=== PATIENT | female | born 1965 | race Caucasian/White ===

== ENCOUNTER 2024-05-22 15:52 | Inpatient (IN) | payer BC, SELFPAY ==
[2024-05-22] VITALS (61 sets, daily range): BP systolic 45–142; BP diastolic 32–112; PULSE 50; BMI 38.4
[2024-05-22 12:01] LABS: % Basophils 0.8 % (0-2); % Eosinophils 2.2 % (0-6); % Immature Granulocytes 0.4 % (0-0.5); % Lymphocytes 38.9 % (20.5-51.1); % Neutrophils 51.7 % (42.2-75.2); Absolute Basophils 0.1 10^3/uL (0-0.2); Absolute Eosinophils 0.2 10^3/uL (0-0.7); Absolute Lymphocytes 3.7 10^3/uL (1.2-3.4); Absolute Monocytes 0.6 10^3/uL (0.1-0.6); Absolute Neutrophils 4.9 10^3/uL (1.4-6.5); Hematocrit 39.2 % (37.0-47.0); Hemoglobin 13.6 g/dL (12.0-16.0); Mean Corp Hgb Conc. 34.7 g/dL (33.0-37.0); Mean Corpuscular Hgb 28.9 pg (27.0-31.0); Mean Corpuscular Volume 83.2 fL (81.0-99.0); Mean Platelet Volume 9.7 fL (7.4-10.4); Nucleated Red Blood Cells % 0 %; Platelet Count 331 10^3/uL (130-400); Red Blood Cell Count 4.71 10^6/uL (4.20-5.40); Red Cell Dist. Width 12.8 % (11.5-14.5); White Blood Cell Count 9.5 10^3/uL (4.8-10.8)
[2024-05-22 12:13] LABS: ALT (SGPT) 21 U/L (0-35); AST (SGOT) 32 U/L (14-36); Albumin 4.3 g/dl (3.5-5.0); Alkaline Phosphatase 76 U/L (38-126); Blood Urea Nitrogen 20 mg/dl (7-17); Carbon Dioxide 25 mmol/L (22-30); Chloride 107 mmol/L (98-107); Estimated Creatinine Clearance 93 ml/min; Glucose 125 mg/dl (70-99); Sodium 139 mmol/L (135-145); Total Bilirubin 0.8 mg/dl (0.2-1.3); Total Protein 7.5 g/dl (6.3-8.2); eGFR > 60.00
--- NOTE | 2024-05-22 12:14 | ED.GENMED ---
Addendum entered and electronically signed by Jaden Perez MD 05/24/24 08:01:
Critical care statement: A total of 100 minutes of critical care time was provided for this patient. This includes management of unstable vital signs, evaluation of the patient at bedside, reviewing the patient's pertinent medical records,
discussion with consultants, review of old EKGs and review of pertinent medical records. This time with separate from time utilized to perform the aforementioned documented procedures
Original Note:
History of Present Illness
General
Chief Complaint: Heart Rate Problem
Source: patient
Exam Limitations: none
Time Seen by Provider: 05/22/24 11:48
Nursing documentation reviewed up to this point in time: agreed with
History of Present Illness
History of Present Illness:
Patient without any significant past medical history, presents to ED secondary to persistent chest palpitations, associated with 'throat constricting' sensation as well as mild lightheadedness over the past 4 days. Secondary to her symptoms,
patient states that she has not been sleeping well for the past 2 nights. Denies chest pain. Denies shortness of breath. Denies nausea or vomiting. Denies fever or chills. Denies recent illness. Denies recent travel or surgery. Denies back
pain. Denies leg pain or swelling. Patient states that her grandmother had 'angina'. Denies previous history of similar symptoms. Patient denies smoking. Patient does drink alcohol socially.
Review of Systems
Review of Systems
Allergies reviewed?: Yes
All Other Systems: ROS reviewed and negative except as documented in HPI and ROS
Constitutional: Reports no symptoms
EENT: Reports no symptoms
Respiratory: Reports no symptoms
Cardiac: Reports palpitations
ABD/GI: Reports no symptoms
: Reports no symptoms
Musculoskeletal: Reports no symptoms
Skin: Reports no symptoms
Neurological: Reports dizzy
Phy Exam
Physical Exam
Physical Exam:
Physical Exam
General: mild distress, not acutely ill. afebrile
Head: nc/at. eomi
Neck: supple. no meningeal signs.
Heart: tachycardic, no murmur. equal radial pulses.
Lungs: no acute respiratory distress. clear bilaterally
Abdomen: normal bowel sounds. not tender.
Neuro: alert and oriented. no focal neurological deficits
Skin: no rash
Psychiatric: well kept. interactive and cooperative
Extremities: no edema. no calf tenderness.
Course
Orders/Labs/Results
Orders:
Orders
05/22/24
Electrocardiogram (*1) Stat
Reason for Study: Chest Pain
Comment: DONE NO ORDER ENTERED
05/22/24 11:37
Electrocardiogram (*1) Urgent
Reason for Study: Shortness of Breath
EKG- Treatment ONCE
05/22/24 11:48
CMP [Comprehensive Metabolic Panel] Urgent
Complete Blood Count/With Diff Urgent
Magnesium Urgent
PT/INR [Prothrombin Time] Urgent
PTT Urgent
TSH Reflex To Free T4 Urgent
Troponin I Urgent
05/22/24 11:56
Add On- LAB Urgent
Tests Added?: magnesium, TSH to reflex Free T4
05/22/24 11:59
Ondansetron Injectable [Zofran] 4 mg IV NOW STA
05/22/24 12:11
Metoprolol [Lopressor] 5 mg IV NOW STA
05/22/24 12:12
EKG- Treatment ONCE
05/22/24 12:59
CR Chest Portable - 1 View Urgent
Comment:
Reason For Exam: hypotension/cp
Reason Study Needs to be Portable: Patient Unstable
05/22/24 13:14
Adenosine [Adenocard] 6 mg .ROUTE .[facility] ONE
Adenosine [Adenocard] 6 mg IV NOW STA
05/22/24 13:19
Electrocardiogram (*1) Urgent
Reason for Study: Tachycardia
EKG- Treatment ONCE
05/22/24 13:27
Diltiazem 125 mg/125 ml Nss [Cardizem] 125 mg in 125 ml IV NOW
Initial dose in mg/hr, then titrate:: 5
Titrate to keep:: Heart rate 80-100 bpm
Titrate by mg/hr:: 5 mg/hr
Frequency of titrations (minutes):: 15
Maximum dose in mg/hr:: 15
05/22/24 13:30
D-Dimer Urgent
05/22/24 14:19
Ondansetron Injectable [Zofran] 4 mg .ROUTE .[facility] ONE
05/22/24 15:06
Echo 2D MMode Color/Doppler Stat
Reason for Study: Limited LV function
05/22/24 15:17
Ondansetron Injectable [Zofran] 4 mg IV NOW STA
05/22/24 15:27
PHENYLephrine 50 MG/250 ML NSS [Rudi-Synephrine] 50 mg in 250 ml IV NOW
Initial dose in mcg/min, then titrate:: 20
Titrate to keep:: SBP > 90 mmHg
Titrate by mcg/min:: 20 mcg/min
Frequency of titrations (minutes):: 5
Maximum dose in ICU in mcg/min:: 200
Maximum dose in IMU in mcg/min:: 80
Begin to taper infusion when:: Remained at goal for 4hrs
Taper by mcg/min:: 20 mcg/min
Frequency of taper (minutes) if patient maintains goal:: 30
Taper to off?: Yes
If infusion off & no longer maintaining goal:: Contact Provider
05/22/24 15:30
Amiodarone [Cordarone] 150 mg Dextrose 5%/Water 100 ml [D5w] 100 ml IV NOW
05/22/24 15:32
Admit/Transfer Patient As Directed
Co-Sign Provider:
Level of Care: Inpatient admission
Assign to:: ICU
Physician / Group: Kym
Diagnosis: Hypotension
Reason for Hospitalization: Hypotension and tachycardia
Expected length of stay greater than two midnights?: Yes
ELOS- Estimated Length of Stay in days: 4
I certify the patient meets the requirements for IP care: Yes
Amiodarone [Cordarone] 900 mg DEXTROSE 5% PVC-free BAG [D5W PVC-free BAG] 500 ml IV NOW
Initial Dose in mg/min:: 1
Duration of initial dose (hours):: 6
Subsequent dose in mg/min:: 0.5
Duration of subsequent dose (hours):: 18
Maximum dose in mg/min:: 1
Hold and notify provider if:: Heart rate < 60 BPM or SBP < 90 mmHg or MAP < 60 mmHg
05/22/24 15:33
Code Status As Directed
Resuscitation Status: Full Code
05/22/24 15:54
0.9% Sodium Chloride 1000 ml [Nss] 1,000 ml IV 100 mls/hr
Acetaminophen [Tylenol] 650 mg PO Q4HPRN PRN
Bisacodyl [Dulcolax] 10 mg RECTAL [id number] PRN
Docusate W/Senna [Senokot-S] 1 tablet PO BIDPRN PRN
Ondansetron Injectable [Zofran] 4 mg IV Q6HPRN PRN
Polyethylene Glycol Powder [Miralax] 17 grams PO DAILYPRN PRN
05/22/24 15:54
CARDIOLOGY CONSULT Routine
Consulting Provider: Jayesh Cabrera
Was physician already notified: Yes
Reason for consult: Sinus tachycardia, hypotension
Activity As Directed
Activity Level: Out of Bed-Early Mobility
Vital Signs As Directed
Frequency: Per unit guidelines
DX Deep Vein Thrombosis Video Routine
05/22/24 18:00
Enoxaparin Sodium [Lovenox] 40 mg SC QPM
05/22/24 21:18
Blood Culture Q1M
JOANNE Source: Blood/Venous
Specimen Description:
Comment: x 2 (separate sites)
05/22/24 21:19
Blood Culture Q1M
JOANNE Source: Blood/Venous
Specimen Description:
Comment: x 2 (separate sites)
Abnormal Lab Results
05/22/24
11:48
Absolute Lymphs (auto) 3.7 H 10^3/uL
(1.2-3.4)
BUN 20 H mg/dl
(7-17)
Glucose 125 H mg/dl
(70-99)
05/22/24 11:48
05/22/24 11:48
Vital Signs
Initial and Last Documented VS:
Initial Vital Signs
Temp Pulse Resp BP Pulse Ox
99.4 F 122 18 108/87 98
05/22/24 11:30 05/22/24 11:30 05/22/24 11:30 05/22/24 11:30 05/22/24 11:30
Last Documented Vital Signs
Temp Pulse Resp BP Pulse Ox
98.3 F 72 17 104/63 98
05/24/24 07:08 05/24/24 06:15 05/24/24 06:15 05/24/24 06:00 05/24/24 06:15
MDM/Problems Addressed
MDM/Problems Addressed:
Patient evaluated immediately upon arrival, secondary to moderate/severe tachycardia. After initial evaluation, vagal maneuver applied, with transient slowing down of heart rate, with 1 EKG, which appeared to be in sinus rhythm. However, quickly,
patient noted to become tachycardic again. Afterwards, patient was given IV fluids along with Lopressor 5 mg IV. Patient subsequently noted to exhibit multiple pauses with mormonism of tachycardia.
Patient evaluated in ED by Dr. Cabrera, cardiology. Adenosine administered with once again transient slowing down of the heart rate into sinus rhythm. Patient unfortunately returned right back into extreme tachycardia. Recommend starting
patient on Cardizem infusion at 5 mg/hour and admission to hospital service for further evaluation and treatment.
Will check D-dimer.
With a short duration of Cardizem infusion, patient noted to become dizzy, nauseous and hypotensive. Cardizem infusion decreased to 2.5 mg/h, without any changes, but continuation of hypotension despite additional IV fluids. Cardizem infusion
discontinued.
After discussion with Dr. Cabrera and admitting hospitalist, decision made to start patient on Rudi-Synephrine infusion as well as amiodarone drip without bolus. Severe hypotension slowly improving on Rudi-Synephrine infusion. Patient will be
admitted to ICU for further evaluation and treatment.
Unfortunately, when started on Cardizem infusion, even at low-dose of 2.5 mg/h, patient became severely hypotensive and vomiting. Discussed with recommends starting patient on amio gtt, if BP improves. Will admit to ICU for further
evaluation and treatment.
Critical care statement: A total of 100 minutes of critical care time was provided for this patient. This includes management of unstable vital signs, evaluation of the patient at bedside, reviewing the patient's pertinent medical records,
discussion with consultants, review of old EKGs and review of pertinent medical records. This time with separate from time utilized to perform the aforementioned documented procedures
*EKG
Interpreted by ED Provider?: Yes
EKG Intrepretation Date: 05/22/24
Heart Rate: 170
Rate: tachycardiac
Rhythm: other (undetermined)
[place]: normal axis
*Critical Care Note
Total Time (30-74mins, 75-104mins- exclusive of procedures): Not Applicable
ED Attending Note
-
Portions of this chart may have been created with voice recognition software.� Occasional wrong word or��sound alike� substitutions may have occurred due to the inherent limitations of voice recognition software.
Discharge Plan
Departure
Patient Disposition: Admit
Date of Disposition: 05/22/24
Time of Disposition: 14:54
Admit to: ICU
Presentation/result/management discussed w/ accepting MD/DO: Hospitalist
Discharge Problem:
SVT (supraventricular tachycardia)
Interventions
Interventions:
*Risk Screen - Suicide Last Done: 05/22/24 17:17
*General Assessment Last Done: 05/22/24 11:30
*Neglect/Abuse Screening Last Done: 05/22/24 11:30
ED- Fall Risk Assessment Last Done: 05/22/24 11:43
*ED COVID-19 Vaccine History Last Done: 05/22/24 17:11
*Nursing Disposition Last Done: 05/22/24 15:55
ED- Cardiac Assessment Last Done: 05/22/24 11:43
ED- Pulmonary Assessment Last Done: 05/22/24 11:43
Discharge Date and Time
Discharge Date/Time: 05/22/24 16:12
[2024-05-22 12:18] LABS: APTT 27.2 Sec (23.4-35.0); INR 1.01; PT 13.1 Sec (11.4-14.6)
[2024-05-22] MEDS: LOPRESSOR 5 MG IV (12:18)
[2024-05-22 12:24] LABS: Troponin I 0.014 ng/ml
[2024-05-22 12:29] LABS: Magnesium 1.9 mg/dl (1.6-2.3)
[2024-05-22 13:03] LABS: TSH Reflex To Free T4 1.99 uIU/ml (0.47-4.68)
[2024-05-22] MEDS: ADENOCARD 6 MG IV (13:20)
[2024-05-22] MEDS: CARDIZEM 125 IV (13:34)
[2024-05-22 14:34] LABS: D-Dimer < 0.27 ug/mlFEU (0.00-0.50)
[2024-05-22] MEDS: ZOFRAN 4 MG IV (15:19)
[2024-05-22] MEDS: NEO-SYNEPHRINE 250 IV ×2 (15:35→21:19)
--- NOTE | 2024-05-22 15:37 | HPS.HSE ---
Family Physician
-
Family Physician: Nina Remy
Chief Complaint
-
Nausea palpitation
History of Present Illness
58-year-old female with no known major medical history and not taking any medication, presented to the hospital complaining of the palpitation and feeling weak and lousy nauseated for the last 4 days, with some tightness in the chest occasionally
shooting down to the left arm, denies any syncope or dizziness or any weakness or numbness in extremity, no diarrhea or any urinary or GI symptoms., Denies sick contact or recent travel or any fever chills, no skin lesion or any other discomfort.
The urinalysis shows tachycardic and initial thought was SVT given dose of the adenosine which brought the heart rate down and then back down to sinus rhythm and pressure improved also went back quickly to the tachycardia and hypotension, given a
low-dose of Cardizem and beta-luis
She is still tachycardic and pressure on the low side, and 80s over 50s, seen by cardiology had a bedside echo that showed no acute abnormality, and cardiology recommended amiodarone drip and Rudi-Synephrine at this stage.
Patient remained awake, alert and oriented x 3 does not feel mildly nauseated and having palpitation denies any other complaint.
Her condition discussed with cardiology and ER physician
Medical History
Past Medical History
Past Medical History: Reports Other
Additional Past Medical History:
Past medical history and archive reviewed:
None
Social history: Lives with the family, denies smoking no alcohol or drug use.
Family history: Grandfather had coronary artery disease.
Past Surgical History: Reports Other
Social History
Unable to obtain full social history at this time due to: Other
Family History
Family History: Other
Allergies / Home Medications
Allergies reflects when Allergies were last updated in [facility].
Home Medications with original date entered in [facility]
Allergy/Medication List:
Allergies
Allergy/AdvReac Type Severity Reaction Status Date / Time
Sulfa (Sulfonamide Allergy Unknown Rash Verified 05/22/24 11:37
Antibiotics)
Home Medications
No Meds [No Current Medications] 05/22/24
Review of Systems
-
A 12 point ROS was completed and negative except as noted: Yes
Physical Exam
Vital Signs
Vital Signs
Temp Pulse Resp BP Pulse Ox
99.4 F 174 19 75/52 98
05/22/24 11:30 05/22/24 15:20 05/22/24 15:20 05/22/24 15:20 05/22/24 15:20
Physical exam:
General: Awake, alert and oriented x3, pale looking, not in distress and holds appropriate conversation.
HEENT: No active discharge, ecchymosis or bruising, moist lips, tongue and mucous membrane.
Eyes: No discharge or red conjunctiva, no nystagmus, pupils are reactive and equal
Neck:Supple, no JVD no bruit no goiter.
Respiratory: Normal AP contour and diameter, normal chest wall movement, normal respiratory effort, no respiratory distress,
Lungs: Good air entry bilaterally, no wheezing or rhonchi, no rales or crackles
Heart: S1, S2 regular, tachycardic no added sound.
Gastrointestinal: Positive bowel sounds, soft, nontender, no guarding or rigidity or organomegaly
Musculoskeletal: , no chest wall abnormality or tenderness. All joints and extremities have good range of motion, no muscle tenderness or any joint swelling or tenderness.
Extremities: No pitting edema, good peripheral pulses, good range of motion
Skin: Warm and dry, no ulceration, normal color.
Neurological: Awake, alert and oriented x3, moves extremities freely, no facial droop, speech clear and comprehensive, good muscle tone,
Psychiatric: Normal mood, normal thought and judgment, normal affect,
Physical Exam
Respiratory: Other
Laboratory Results
-
05/22/24 11:48
05/22/24 11:48
Laboratory Results
PT 13.1 Sec (11.4-14.6) 05/22/24 11:48
INR 1.01 05/22/24 11:48
APTT 27.2 Sec (23.4-35.0) 05/22/24 11:48
Total Bilirubin 0.8 mg/dl (0.2-1.3) 05/22/24 11:48
AST 32 U/L (14-36) 05/22/24 11:48
ALT 21 U/L (0-35) 05/22/24 11:48
Alkaline Phosphatase 76 U/L (38-126) 05/22/24 11:48
Troponin I 0.014 ng/ml 05/22/24 11:48
Chest x-ray: Showed no acute cardiopulmonary normalities
EKG showed no look like sinus tachycardia, CT 208, QTc 467, nonspecific ST-T wave abnormalities. No previous EKG on archive.
Data Reviewed
-
Diagnostic Radiology: Image Personally Visualized and interpreted, Discussed with Physician and Discussed with Patient
Medical Tests (Nuc Med, Echo, EKG etc): Image Personally Visualized and interpreted, Discussed with Physician and Discussed with Patient
Lab Data: Labs Reviewed by me, Discussed with Physician and Discussed with Patient
Old Records: Reviewed
Impression/Plan
-
IMPRESSION:
58-year-old female with no known major medical history, presented to the hospital complaining of 4-day history of palpitation and nausea with the workup showed tachycardia, responded shortly to adenosine but not to IV beta-luis or calcium channel
luis and she has been having a low blood pressure, no sign and symptom of any infection no fever, show this is SVT or A-fib or flutter.
Discussed with cardiology
Tachycardia, SVT versus sinus tachycardia.
Hypotension likely secondary to tachycardia
Infectious causes may need to be considered.
PLAN:
Admit in ICU
Rudi-Synephrine drip is ordered
Cardiology recommended amiodarone bolus and drip which has been ordered
Pressure is improving
Continue to monitor
Overall received 3 L normal saline and will continue at 100 mill per hour
Monitor vital sign closely
TSH and D-dimer is normal
Cardiology consult
Blood culture collected will hold off antibiotic for now. The chest x-ray is clear and new evidence of infection and was some of the signs and symptoms indication indicating require antibiotic
UA and culture if indicated
All discussed with the patient in detail expressed understanding
Discussed with the cardiology and ER physician
CODE STATUS full code
DVT prophylax Lovenox
[2024-05-22] MEDS: CORDARONE 103 MG IV (16:07)
[2024-05-22] MEDS: CORDARONE 518 MG IV (16:20)
--- NOTE | 2024-05-22 16:36 | CON.CAR ---
Consultation
Consultation Request
Date/Time Consultation Requested: May 22 2024 12:30
Date/Time Consultation Performed: May 22 2024 1:00 pm
Requesting Provider: Jaden Perez
Performing Provider: Jayesh Cabrera
Reason for Consultation: tachycardia
Medical History
-
Chief Complaint: palpitations
Past Medical History
Past Medical History: None
Past Surgical History: None
Social History
Tobacco: Non-Smoker
Alcohol: None
Drug: None
Living: With Family
Family History
Family History: CAD
Allergies / Home Medications
Allergy/AdvReac Type Severity Reaction Status Date / Time
Sulfa (Sulfonamide Allergy Unknown Rash Verified 05/22/24 11:37
Antibiotics)
�Medication �Instructions �Recorded �Confirmed �Type
No Meds [No Current Medications] 05/22/24 05/22/24 History
Review of Systems
-
All other systems: Negative unless noted
Physical Exam
Vital Signs
Temp Pulse Resp BP Pulse Ox
99.4 F 172 8 93/74 98
05/22/24 11:30 05/22/24 16:00 05/22/24 16:00 05/22/24 16:00 05/22/24 15:50
Lab Results
05/22/24 11:48
05/22/24 11:48
Troponin I Cancelled 05/22/24 18:00
Physical Exam
General: Well Developed, Well Nourished and Other (distressed )
HEENT: Normocephalic
Respiratory: Clear and Non Labored Respirations
Cardiac: Other (tachycardic )
GI: Soft
Musculoskeletal: No Clubbing, No Cyanosis and No Edema
Skin: Warm and Dry
Neuro: AO x 3
Impression / Plan
-
58 yo female with no significant PMH who presented with atrial tachycardia/SVT and then had hemodynamic compromise with metoprolol and dilitiazem. I would rule out sepsis with blood cultures etc. Will discuss with EP about possiblel EP study at
some point and possible ablation. Amiodarone is controlling HR and inotropic support appears to be coming down.
atrial tachycardia/SVT
- cont amiodarone gtt
- cont inotropic support and wean as able
- recieved metoprolol IV then diltiazem gtt at 2.5 mg and had profound hypotension thereafter requiring pressor support
- no in and out of a tach and sinus rhythm with PACs and blocked PACs, cont amiodarone
- troponin likely elevated 2/2 hypotension and tachycardia
Hypotension
- rule out infection
- IV fluids
Data Reviewed
-
EKG: Tracing Personally Visualized and interpreted (a tach )
Medical Tests (Nuc Med, Echo etc): Image Personally Visualized and interpreted
Labs: Labs Reviewed by me
[2024-05-22] MEDS: NSS 1000 IV ×2 (17:26→23:41)
--- NOTE | 2024-05-22 18:00 | PTCARENOTE ---
Pt came up to ICU from ED with her blood pressure 60s/50s, heart rate in the 170s. Pt had vomited en route to room and was diaphoretic. AAOx4. Denies pain. Denies feeling SOB. Received bedside report from ED RN. Phenylephrine gtt initially at
100mcg/min. Titrated up to 140mcg/min per protocol. 1L fluid bolus was supposed to be infusing but IV tubing found to be clamped and pt's IV site also found to be clamped. Upon unclamping both sites, R wrist PIV started swelling. R wrist PIV
discontinued and fluids switched to L hand PIV, which was flushed and is patent. Amiodarone bolus administered and amiodarone gtt infusing at 1mg/min or 33.3mL/hr through RAC #18. SaO2 mid 90s. Added 2L NC, SaO2 now 94-96%. STAT ECHO performed
shortly after pt came to ICU room. Prize Jacker at bedside. Verbal order taken for vasopressin gtt. Gtt not started as heart rate came down and blood pressure came up. After amiodarone bolus, heart rhythm when from sinus tachycardia to normal sinus
rhythm to what looks like 3rd degree heart block or junctional rhythm. Multiple EKGs performed and reviewed per Prize Jacker request at bedside. Blood cultures ordered. Pt stuck x2 without success. Will page phlebotomy and/or try again when pt more
stable.
[2024-05-22] MEDS: LOVENOX 40 MG SC (18:25)
--- NOTE | 2024-05-22 19:00 | W.PN.UPDATE ---
Update Note
Progress Note Update
05/22/24
1900- Patient heart rhythm, junctional/AVblock, most beats without P waves and multiple PACs adn PVCs, HR 50s. Patient states that she is comfortable, denies chest pain but slight pressure which she rates 3/10. Denies neck pain, tightness,
numbness/tingling, jaw pain, radiating pain, or back pain. Called scraper tender Dr. Cabrera, discussed rhythm changes. Patient currently on amio gtt and elvis gtt with SBP >90. Advised to continue amio gtt and update scraper tender if HR sustained
30s. Case also discussed with mems process engineer, Dr. India Sarkar. Will initiate CPAP, possible patient has suspected obstructed sleep apnea. States that she snores and has been woken up the last several nights with chest palpitations/pain.
1999- Reviewed with scraper tender Dr. Cabrera, at bedside heart rhythm changes, EKG obtained. Concern for AV block with sustained heart rate 30s. Dr. Cabrera reviewed with Dr. Chavez and Dr. Lara, decision was made to place temporary pacer and
stop amio gtt at this time, elvis gtt maintained for SBP >90.
05/23/24
0300- Heart rate 120-150s sustained atrial tachycardia, amio gtt resumed. At times there are slower beats, PACs/PVCs, paced beats and AVblock/junctional rhythm with some accelerated beats atrial tachycardia. Patient resting comfortably, denies
chest pain.
--- NOTE | 2024-05-22 21:00 | PTCARENOTE ---
on assessment pt AAOx3, denies pain and SOB, no N/V, rhythm SB with possible heart block/junctional, IT ARCHITECTURE ANALYST and cardio aware and at bedside to assess pt. IT ARCHITECTURE ANALYST and MD called home performance laborer in to place temp pacer, due to HR in the high 30s, BP low on elvis and nss,
amio was stopped due to MD order see JOVITA, call ball in reach. EKG and labs completed per orders.
[2024-05-22 21:45] LABS: Erythrocyte Sed Rate 14 mm/hour (0-20)
--- NOTE | 2024-05-22 22:13 | ITS.CL.CATH ---
[facility] [employer] - Catheterization
Cardiac Catheterization
Procedure Report:
TRANSVENOUS PACEMAKER REPORT
Date of Procedure: May 22, 2024
Referring: Dr. Jayesh Cabrera
PROCEDURES:
1. Placement of balloon-tipped temporary transvenous venous pacemaker wire from right common femoral venous access
INDICATION: Heart block with hypotension
ACCESS: Right common femoral vein
PROCEDURE DETAIL: Ultrasound guidance was utilized to assess access in the right internal jugular vein. Access was poor even after 600 mL of normal saline was infused. The decision was made to proceed with placement of a temporary transvenous
pacemaker wire through the right right common femoral vein. Lidocaine was administered and access was obtained in the right common femoral vein using ultrasound guidance and placement of a 6 Azerbaijani sheath. The sheath was sewn in position. A
balloon-tipped temporary transvenous pacer wire was advanced from the right common femoral vein to the right ventricle where pacing thresholds appeared excellent. A backup rate of 40 bpm was set with pacemaker output of 10 mA. The pacemaker was
locked in position.
RADIATION SUMMARY: Fluoro Time (min): 1.2, Dose (mGy): 32.5, DAP (Gy.cm2) : 4.6
CONCLUSIONS
1. Successful placement of 5 Azerbaijani temporary transvenous pacemaker from right common femoral vein
Copy to: Dr. Jayesh Cabrera
--- NOTE | 2024-05-22 22:55 | PTCARENOTE ---
pt back from catheterization laboratory technician, R fem temporary pacer placed, rate set at 40 and mA at 10, pt denies pain and SOB.
[2024-05-23] VITALS (49 sets, daily range): BP systolic 94–148; BP diastolic 44–105; PULSE 59; BMI 40.2
--- NOTE | 2024-05-23 03:11 | PTCARENOTE ---
pt with episodes of atrial tachycardia, restarted amio, denies pain and SOB, remains on BIPAP.
[2024-05-23 04:36] LABS: Hematocrit 36.3 % (37.0-47.0); Hemoglobin 11.8 g/dL (12.0-16.0); Mean Corp Hgb Conc. 32.5 g/dL (33.0-37.0); Mean Corpuscular Hgb 28.8 pg (27.0-31.0); Mean Corpuscular Volume 88.5 fL (81.0-99.0); Mean Platelet Volume 9.8 fL (7.4-10.4); Platelet Count 238 10^3/uL (130-400); Red Cell Dist. Width 13.2 % (11.5-14.5); White Blood Cell Count 13.9 10^3/uL (4.8-10.8)
[2024-05-23 05:34] LABS: Blood Urea Nitrogen 16 mg/dl (7-17); Calcium 7.8 mg/dl (8.4-10.2); Carbon Dioxide 18 mmol/L (22-30); Chloride 113 mmol/L (98-107); Estimated Creatinine Clearance 107 ml/min; Glucose 111 mg/dl (70-99); Magnesium 1.9 mg/dl (1.6-2.3); Phosphorus 4.2 mg/dl (2.5-4.5); Potassium 4.8 mmol/L (3.5-5.1); Sodium 139 mmol/L (135-145); eGFR > 60.00
--- NOTE | 2024-05-23 06:43 | CON.INTV ---
Consultation
Consultation Request
Date/Time Consultation Requested: 05/23
Date/Time Consultation Performed: 05/23
Reason for Consultation: Critical care
Medical History
-
History of Present Illness:
History obtained from the chart and you reviewing ER records and from the patient. Pleasant 58-year-old female without significant past medical history who presents with 3 to 4 days of palpitations and sensation that her throat was constricting.
She also had some mild lightheadedness but denies any falls. She has had to sleep upright because of the symptoms with some improvement. She admits to mild shortness of breath. She denies arm pain, jaw pain, fevers, chills, nausea, abdominal
pain. She did travel to [place] in February. She tried a new supplement called sea valdez about 1 month ago, gave her stomach upset. Because of persistent symptoms she brought herself into [facility] where upon arrival temperature 99.4, pulse
122, breathing 18, blood pressure 108/87, 98%. Blood work normal, chest x-ray with cardiomegaly. Patient was given adenosine for heart rate up in the 170s. She was given IV fluids and IV Lopressor. She then developed transient bradycardia while
after Cardizem was started. Norepinephrine was started with amiodarone. Patient was admitted to ICU for further management.
Patient subsequently went for emergent pacemaker for persistent bradycardia in the 30s. Temporary pacemaker placed in the Filling Mixer via right femoral.
Presently, patient is feeling improved, less chest tightness. She is otherwise without complaints, conversant and comfortable appearing
.
PMH: Suspected sleep apnea
Past Medical History
Past Medical History: None (See above)
Past Surgical History: None (See above)
Social History
Tobacco: Non-smoker
Alcohol: Occasional
Drug: None
Personal: Single
Living: With Family (Mother, child, nephew)
Employment: Employed (Works in an office, accounting)
Family History
Family History: Reviewed & Not Pertinent (Mother alive and healthy. Father from Alzheimer's. 1 child healthy. 1 sister healthy. [place] descent)
Allergies / Home Medications
Allergies
Allergy/AdvReac Type Severity Reaction Status Date / Time
Sulfa (Sulfonamide Allergy Unknown Rash Verified 05/22/24 11:37
Antibiotics)
Home Medications
�Medication �Instructions �Recorded �Confirmed �Last Taken �Type
No Meds [No Current Medications] 05/22/24 05/22/24 Unknown History
Review of Systems
-
All other systems: Negative unless noted (Patient has describes some joint pains over the past couple weeks. Denies any skin rash)
Vitals / Labs / Diagnostic Testing
Vital Signs
Temp Pulse Resp BP Pulse Ox
98.5 F 85 24 120/82 95
05/23/24 03:28 05/23/24 06:15 05/23/24 06:15 05/23/24 06:15 05/23/24 06:15
Lab Data
05/23/24 04:25
05/23/24 04:25
Laboratory Results
05/22/24
11:48
PT 13.1
INR 1.01
APTT 27.2
Diagnostic Testing:
Physical Exam
-
HEENT: Normocephalic, Anicteric and Other (Right groin femoral transvenous pacemaker)
Cardiovascular: S1/S2, Irregular Rhythm, Murmur (n) and Rub (n)
Respiratory: Wheeze (n), Rales (n), Rhonchi (n) and Non-Labored Respirations
GI: Soft, Non Distended and Non Tender
Neurology: Awake, Alert and Oriented
Skin: Good Color
General: Comfortable
Assessment
-
58-year-old female without significant medical history presents with 3 to 4 days of palpitations, chest tightness, neck discomfort. Found to have tachycardia 130s to 170s in the ED, started on Lopressor and Cardizem drip followed by hypotension.
Patient started on norepinephrine and amiodarone. Persistent hypertension, amiodarone discontinued. Patient had pacemaker placed in the Filling Mixer, admitted to ICU for further management
Tacky/bradycardia syndrome
Hypotensive following Lopressor/Cardizem
Requiring pacemaker placement, right femoral
Hypotension secondary to arrhythmia
Nonspecific joint pains x 1 month
Recent travel to [place] February 2024
Suspected sleep apnea
Hyperglycemia
Hx of Covid 2020
Plan/recommendations
At this time, patient is critically ill requiring norepinephrine. Symptoms improved following pacemaker placement. SVT, current heart rate 100s
Patient does describe nonspecific joint pains over the past month. Denies any skin rash
Moving forward
Continue with management per cardiology. Replete magnesium, follow electrolytes
Echocardiogram within normal limits. Chest x-ray unremarkable, blood cultures negative to date
Lyme titers pending
Patient denies any symptoms to suggest bacterial infection but does describe nonspecific symptoms such as joint pains for the past 2 weeks, mild cough over the past few days
Follow cultures
Check UA
Wean off pressors as able, rate control per cardiology
Head of bed elevated, aspiration precautions
DVT prophylaxis: Remains on enoxaparin
Reviewed with critical care nursing, respiratory care, pharmacy
Will follow
TCCT 35 min
--- NOTE | 2024-05-23 08:00 | PTCARENOTE ---
recd bedside, change of shift handoff. pacer wire R fem, box attached, settings reviewed and confirmed. monitor strips on chart, presently mostly NSR with some bursts afib/aflutter not sustained. no pacer beats observed since beginning of my
shift. in good spirts, purewick in place. elvis shut off at handoff, amio dcd per orders Dr. Chavez. fem site intact, no hematoma, CMS R leg normal. turned and positioned for comfort, skin care, brushed teeth. call ball in reach. mag rider
infusing.
[2024-05-23] MEDS: MAGNESIUM SULFATE 100 IV (08:04)
--- NOTE | 2024-05-23 08:10 | W.PN.HOSP.TC ---
Today's Communication/Plan
-
Plan for cardiac ablation today.
Assessment / Plan
Assessment / Plan
Physical exam:
General: Well Developed, Well Nourished and No Apparent Distress
HEENT: Normocephalic, Atraumatic and Moist Mucous Membranes
Respiratory: Clear to Auscultation; Negative Wheezes, Rales or Rhonchi
Cardiac: Regular Rhythm and S1/S2
GI: Soft, Nontender and Nondistended
Musculoskeletal: No Clubbing, No Cyanosis and No Edema
Neuro: Awake, Alert and Oriented
Psych: Calm
A/P:
Paroxysmal SVT/atrial fibrillation/atrial arrhythmias with tachybradycardia syndrome:
Status post rate control medications and followed by amiodarone drip
Status post temporary pacer
EPS consult
Plan for ablation today
Shock likely induced by arrhythmia:
On pressors
IVF
No signs of infection
Transthoracic echo no significant abnormalities
Leukocytosis:
Reactive
Anemia:
Likely dilutional
Continue to monitor
DVT prophylaxis:
SCDs
CODE STATUS:
Full code
Time spent 55 minutes
Anticipated Discharge: 24 - 48 hours
Subjective/Interval History
-
Date of Service: May 23, 2024
Patient denies any chest pain or shortness of breath. No palpitations. Remains in ICU on cardiac monitoring.
Objective Data
-
Labs:
Laboratory Results
05/23/24
04:25
WBC 13.9 H
Hgb 11.8 L
Hct 36.3 L
Plt Count 238 D
Sodium 139
Potassium 4.8
Chloride 113 H
Carbon Dioxide 18 L
BUN 16
Creatinine 0.7
Glucose 111 H
Calcium 7.8 L
Vital Signs:
Vital Signs
Temp Pulse Resp BP Pulse Ox
98.3 F 85 24 120/82 95
05/23/24 07:31 05/23/24 06:15 05/23/24 06:15 05/23/24 06:15 05/23/24 06:15
I&O
05/22/24 05/23/24 05/24/24
06:59 06:59 06:59
Intake Total 2720.6 / 2720.6
Output Total 100 / 100
Balance 2620.6 / 2620.6
--- NOTE | 2024-05-23 09:57 | PTCARENOTE ---
seen by Dr. Fallon, consent obtained by him for afib ablation later today. no other change.
--- NOTE | 2024-05-23 10:01 | W.PN.UPDATE ---
Update Note
Progress Note Update
Reviewed events of the last 24 hours.
She describes paroxysmal atrial arrhythmias which are regular over the last 4 days but definitively paroxysmal per her symptoms. She also demonstrated paroxysmal atrial arrhythmias here. Variable P wave trigger in the trigger typically falls
within the ST segment but appears positive throughout the precordium, positive into 3 and lead I suggesting a pulmonary vein trigger in or about the right pulmonary veins. Occasionally there appears to be a bifid negative P wave in V1 so cannot
entirely exclude anterior interatrial fossa or noncoronary cusp although the P wave is relatively wide and inferiorly directed in lead III.
She had periods of junctional bradycardia and sinus rhythm with atrial bigeminy suggesting some sick sinus syndrome although she had received IV Cardizem and IV metoprolol as well as amiodarone drip. She continues to have salvos despite amiodarone
drip and she received a temporary pacemaking wire last evening in the right femoral vein and appears at times to be pacing in the ventricle. Sinus node rates have improved over the evening with hydration.
Discussed options with patient including observation only with antiarrhythmic drug therapy, permanent pacemaker to allow antiarrhythmic drug therapy, targeting of her atrial tachycardia�fibrillation with intracardiac mapping and probable pulmonary
vein isolation or addressing nonpulmonary vein trigger. We discussed a 1 to 2% pacemaker risk including if we have to address a trigger in the SVC region. I also described 3 months of post procedure blood thinner and we will clear her left atrial
appendage with intracardiac ultrasound although her arrhythmias have been paroxysmal. She wants to proceed with EPS today on an urgent basis given the fact that she has a temporary wire into support her heart rate instead of proceeding to permanent
pacing as neck step. I do think this is reasonable and she signed informed consent. I took time to answer all questions.
Plan:
EPS today
Turn amiodarone off
Will maintain temporary wire in the right femoral vein for now
I took time to answer all questions
Discussed with Dr. Chavez
--- NOTE | 2024-05-23 12:29 | W.PN.UPDATE ---
Update Note
Progress Note Update
EP Note
Consult will be dictated.
Imp: PAF, PAT, PACs. Medication precipitated bradycardia.
Suggest: Early ablation.
Temp wire stopped working. No needed pacing in over 6 hrs. Lead tip likely now in RA. I removed temp wire and right femoral venous sheath. Hemostasis achieved with manual compression.
--- NOTE | 2024-05-23 12:45 | PTCARENOTE ---
approx 12 noon, turned, PW emptied, clean pad underneath, upon turning back, noted on monitor failure to sense/failure to capture. no change in assessment, pacer spikes do not capture, marching through underlying ECG rhythm. see strips.
Deborah notified, CXR portable called for. Dr. Chavez bedside, temp wire removed after xray read by MD. pressure held R fem, hemostatic after 10 min, DSD to groin puncture site. report to laboratory technology teacher 1230, laboratory technology teacher staff here to transport pt to cath
lab 1245.
--- NOTE | 2024-05-23 13:26 | CM ---
CM following re: discharge planning.
Reviewed pt's chart, met with pt.
Pt is a 58 year old female, admitted with primary dx of Tacky/bradycardia syndrome. Hypotensive following Lopressor/Cardizem. Requiring pacemaker placement, right femoral. Plan for cardiac ablation today.
Pt reports she lives with mother, nephew and 21 old son in a condo, 2 steps to enter.. pt described herself as independent in all areas [employer]. No DME, VN or SNF history.
PCP: Nina Remy
Pharmacy: [facility]
D/C plan: home with anticipated no needs. family to transport at discharge.
CM will follow with discharge plan updates as hospitalization progresses
[2024-05-23 14:35] LABS: ACT-LR - POC 227 Seconds (116-155)
[2024-05-23 14:53] LABS: ACT-LR - POC 294 Seconds (116-155)
[2024-05-23 15:10] LABS: ACT-LR - POC 290 Seconds (116-155)
[2024-05-23 15:27] LABS: ACT-LR - POC 292 Seconds (116-155)
--- NOTE | 2024-05-23 15:54 | ITS.CL.ABL ---
Addendum entered and electronically signed by Alok Fallon MD 05/24/24 09:19:
Paragraph 8 should start with 'Once we found the LIPV triggers'
Original Note:
[employer] Processing Supervisor - Ablation
Ablation
Procedure Report:
ELECTROPHYSIOLOGY ABLATION STUDY
�
DATE:: May 23, 2024���������������������������� REFERRING: Dr. Damián Chavez
�
INDICATION: Paroxysmal supraventricular tachycardia in the form of atrial tachycardia. Periods of incessant tachycardia with positive P wave throughout the precordium and inferiorly directed suggesting a pulmonary vein source of tachycardia.
Variable P wave morphology suggesting both left pulmonary vein and at times right pulmonary vein morphologies. Also periods of junctional bradycardia and sinus bradycardia with atrial bigeminy at times. Short periods of atrial fibrillation were
induced by the atrial tachycardia with self termination. She had hypotension with Cardizem and amiodarone and required temporary pacing overnight for blood pressure support.
�
HISTORY: See H and P.� As above
�
ANTIARRHYTHMIC DRUG: Amiodarone which was discontinued at 4 AM
�
PRE-PROCEDURE LJ: No atrial thrombus on intracardiac ultrasound
�
PRESENTING RHYTHM: Sinus rhythm with spontaneous left inferior pulmonary vein APD's. She had had diminishing burden on amiodarone overnight intravenously
�
'TIME-OUT':� called and confirmed.
�
SEDATION/ANESTHESIA:� provided via the anesthesia department using general anesthesia (LMA).
�
INTRAVENOUS/ARTERIAL ACCESS:
Right femoral venous - 8Fr
Left femoral venous - 8 Fr, 6 Fr
Ultrasound guidance for bilateral femoral vein access was utilized by me to obtain access with demonstration of normal anatomy
CHADS-VASC Score:
�
HAS-Bled Score
�
PROCEDURE:�
1.� A decapolar CS catheter was placed within the CS for mapping and pacing.� This was also used as the reference catheter for the 3-D map. We initially mapped the right atrium with multipolar grid and with a stable coronary sinus placed the
patient on isoproterenol. No spontaneous tachycardia or single APD's were noted with catheters in the right atrium and as such we proceeded to transseptal puncture and remapping of the left atrium. Transseptal puncture as below and a
electroanatomic map was made of the left atrium in sinus rhythm. Spontaneous APD's and couplets were noted which were earliest at the left inferior pulmonary vein and activation mapping of the APD demonstrated a focal trigger 1 cm inside the left
inferior pulmonary vein at the inferior aspect of the vein as well as along the ligament of Brandyn. Rare APD's were also noted for the right inferior pulmonary vein. Spontaneous DVTs from left inferior pulmonary vein were saved and P wave
morphology was similar to the patient's twelve-lead morphology with ECG. Each pulmonary vein and the posterior was also paced to identify the P wave morphology from each of these regions and correlate with clinical arrhythmia. Isoproterenol was
infused in the left atrium post ablation as below.
�
2. The intracardiac ultrasound catheter was positioned in the RA to identify the FO for targeting of transseptal puncture, assist� in identification of the pulmonary vein ostia, monitoring pre and post ablation pulmonary vein flow velocities,
monitoring for 'bubble' formation during RF application as a sign of thermal injury,� and to monitor for pericardial effusion during mapping and ablation procedure.�� Left atrial size, LV ejection fraction, and pulmonary vein flows were monitored
pre and post ablation procedure. The other valves were inspected and found to be free of significant regurgitation or stenosis.
�
3.� Half of the calculated heparin bolus was administered prior to the first transeptal puncture.� Transseptal puncture was performed to diagnose RA and LA pressure so that safety of LA mapping and ablation could be further assessed, and to access
the left atrium and pulmonary veins for mapping and ablation.� This entailed advancing an 10 Greek steerable sheath with dilator into the superior vena cava and withdrawing both (monitoring intracardiac ultrasound, fluoroscopy and tip pressure)
with the tip oriented toward the atrial septum.� The fossa ovalis was engaged (indicated by sudden displacement of the sheath tip as well as tenting of the fossa seen on intracardiac ultrasound).� Left atrial access required a pass with the
Brockenbrough needle extended.� Left atrial catheter position was confirmed by pressure monitoring (RA mean pressure 6 mm Hg and LA mean presure 20 mm Hg), LA saturation (99%),� as well as fluoroscopy.� The sheath was advanced over the dilator and
positioned in the left atrium.� This procedure was repeated for the Agilis sheath.� The remainder of the calculated heparin bolus was administered and heparin was
infused to maintain ACT at 300 -350 seconds throughout the case.
�
4.� RA pacing was performed via the proximal decapolar poles and LA pacing was performed via the distal decapolr poles.
�
5. A quadrapolar catheter was first positioned at the His position for His Bundle recording which was tagged via the 3-D Navex sytem, and then passed to the RVA for RV pacing and recording.
�
6. The multipolar grid was utilized for anatomic and activation mapping in each of the LIPV, LSPV, RSPV and the RIPV.��A full right atrial map was also created.
�
7.� Next, a 3-D map was created using Navex.�� A 3-D reconstructed CT image was compared to the 3-D Navex map to assist in anatomic interpretation, mapping and ablation.� The CT image and the NavX image were fused.
�
8. Once we did not find the clinical left inferior pulmonary vein singles couplets and triplets as well as sparse right inferior pulmonary vein APD's as well as correlation with short periods of atrial fibrillation which degenerated from the atrial
tachycardia clinically we elected to perform pulmonary vein isolation and left atrial posterior wall isolation as well as modification of the interatrial septum on the septal aspect of the right pulmonary veins. After glycopyrrolate 0.2 mg the
pulse select PFA catheter was brought to the left atrium for a total of 94 lesions isolating all 4 pulmonary veins and the left atrial posterior wall. The left inferior pulmonary vein was relatively narrow although we engaged the vein quite
distally to deliver PFA in the region of earliest activation in the left inferior pulmonary vein. Entrance exit block was confirmed in all 4 pulmonary veins and the left atrial posterior wall as well as the floor and relatively larger of the inner
atrial septum congruous to the right pulmonary veins.
We then reinfused isoproterenol which she can tolerate up to 3 mcg and atrial burst pacing down to atrial refractoriness from the coronary sinus left atrium and right atrium and no spontaneous APD's or triggers for atrial fibrillation were noted.
EP study did not demonstrate any bypass tract or dual aster physiology. Resting sinus rates after glycopyrrolate weaning sedation were in the 80s.
�
9. Pacing at 600 ms did not demonstrate any significant prolonged sinus node recovery time
�
TOTAL FLOURO TIME: 22.3 minutes to 12 mGy
�
TOTAL RF DURATION: 0 minutes
�
REVERSAL OF HEPARIN: 35 mg of protamine, slow IV administration
�
COMPLICATIONS:�
None
Intracardiac US shows no pericardial effusion post ablation.
�
SUMMARY:��
Complex left atrial mapping and ablation.
Spontaneous APD's and couplets from the left inferior pulmonary vein as well as sparse right inferior pulmonary vein APD's on isoproterenol. Given the patient's clinical tracings as well as the spontaneous triggers we performed pulmonary vein
isolation and left atrial posterior wall isolation. Post left atrial ablation on isoproterenol there were no other nonpulmonary vein triggers for atrial tachycardia or atrial fibrillation.
�
RECOMMENDATIONS:
1. Admit to monitored bed.�
2. Start Eliquis 5 mg twice daily x 3 months
3.� Start Cardizem 180 mg CD daily for 3 to 6 months
4.� Out of bed in 4 hours after [id number] sutures cut and anticipate discharge on May 24, 2024
�
Copy to: Dr. Damián Chavez, Dr. Jayesh Cabrera
�
--- NOTE | 2024-05-23 16:42 | PTCARENOTE ---
returned from general labor direct back, VS stable, bilat groin figure of 8 dressings intact. maintained on simple mask, occas cough, oral care. awakens easily. call ball in reach.
[2024-05-23] MEDS: NSS IV (17:02)
[2024-05-23] MEDS: DUONEB 3 ML INH (17:17)
--- NOTE | 2024-05-23 18:30 | PTCARENOTE ---
PRN neb order obtained for earlier wheezing, with relief. tolerating 4l nc. eating dinner. aware of plan of care.
--- NOTE | 2024-05-23 19:30 | PTCARENOTE ---
on assessment pt denies pain, SR on the monitor, 4L NC, denies SOB, purwick in place, denies any N/V, b/l groin sites C/D/I, call ball in reach.
--- NOTE | 2024-05-23 20:00 | PTCARENOTE ---
figure 8 sutures removed per MD. pt tolerated well. b/l groin sites redressed with 4x4 and tegaderm.
[2024-05-23] MEDS: CARDIZEM CD 180 MG PO (20:09)
[2024-05-23] MEDS: ELIQUIS 5 MG PO (21:53)
[2024-05-24] VITALS (14 sets, daily range): BP systolic 92–128; BP diastolic 57–104; BMI 40.3
--- NOTE | 2024-05-24 | PTCARENOTE ---
pt placed on CPAP HS, denies pain and SOB, b/l groin sites C/D/I, call ball in reach.
[2024-05-24 03:31] LABS: % Basophils 0.2 % (0-2); % Immature Granulocytes 0.5 % (0-0.5); % Lymphocytes 9.8 % (20.5-51.1); % Monocytes 6.8 % (1.7-9.3); % Neutrophils 82.7 % (42.2-75.2); Absolute Immature Granulocytes 0.1 10^3/uL (0-0.05); Absolute Lymphocytes 1.5 10^3/uL (1.2-3.4); Absolute Neutrophils 12.4 10^3/uL (1.4-6.5); Hematocrit 34.8 % (37.0-47.0); Hemoglobin 11.4 g/dL (12.0-16.0); Mean Corp Hgb Conc. 32.8 g/dL (33.0-37.0); Mean Corpuscular Hgb 28.8 pg (27.0-31.0); Mean Corpuscular Volume 87.9 fL (81.0-99.0); Mean Platelet Volume 9.7 fL (7.4-10.4); Nucleated Red Blood Cells % 0 %; Platelet Count 191 10^3/uL (130-400); Red Blood Cell Count 3.96 10^6/uL (4.20-5.40); Red Cell Dist. Width 13.3 % (11.5-14.5)
[2024-05-24 03:55] LABS: Blood Urea Nitrogen 12 mg/dl (7-17); Calcium 7.7 mg/dl (8.4-10.2); Carbon Dioxide 23 mmol/L (22-30); Chloride 110 mmol/L (98-107); Estimated Creatinine Clearance > 125 ml/min; Glucose 143 mg/dl (70-99); Magnesium 2.2 mg/dl (1.6-2.3); Potassium 4.3 mmol/L (3.5-5.1); Sodium 138 mmol/L (135-145); eGFR > 60.00
--- NOTE | 2024-05-24 04:16 | PTCARENOTE ---
pt requested to have CPAP removed around 0300, 4L NC replaced, no changes from prior assessment.
--- NOTE | 2024-05-24 05:04 | PTCARENOTE ---
pt noted to have change in rhythm, asymptomatic and BP 113/88, BAGGAGE AGENT made aware, EKG completed and noted to be sinus arrhythmia. No new orders at this time.
--- NOTE | 2024-05-24 07:18 | W.PN.INTV ---
Addendum entered and electronically signed by Lima Madrigal MD 05/24/24 11:46:
Leukocytosis noted
Likely post procedure
With any worsening respiratory symptoms post discharge, consider repeat chest x-ray
Original Note:
Today's Communication / Plan
Recommendations
Continue calcium channel luis per cardiology
Anticoagulation started
Recommend outpatient sleep apnea evaluation
Information left in chart
For transfer out of ICU, disposition noted. We will sign off. Please call with questions
Assessment
-
58-year-old female without significant medical history presents with 3 to 4 days of palpitations, chest tightness, neck discomfort. Found to have tachycardia 130s to 170s in the ED, started on Lopressor and Cardizem drip followed by hypotension.
Patient started on norepinephrine and amiodarone. Persistent hypertension, amiodarone discontinued. 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
Tacky/bradycardia syndrome
Hypotensive following Lopressor/Cardizem
Requiring pacemaker placement, right femoral
S/P pvi 05/23
Hypotension secondary to arrhythmia
Nonspecific joint pains x 1 month
Recent travel to [place] February 2024
Suspected sleep apnea
Hyperglycemia
Hx of Covid 2020
Plan/recommendations
At this time, patient appears to be comfortable.
Mild wheezing and hypoxia postprocedure yesterday, improved with nebulized therapy
Presently sitting in chair, weaned down to room air. Chest exam is clear
Patient tolerated few hours of CPAP. Hypoxia while off CPAP noted
High suspicion for sleep apnea
Moving forward
Continue with management per cardiology.
Anticoagulation, rate control medication noted
Follow-up with cardiology as outpatient
Echocardiogram within normal limits. Chest x-ray unremarkable, blood cultures negative to date
Lyme titers pending
Patient denies any symptoms to suggest bacterial infection but does describe nonspecific symptoms such as joint pains for the past 2 weeks, mild cough over the past few days
Cultures negative to date
Off pressors
Head of bed elevated, aspiration precautions
DVT prophylaxis: Remains on enoxaparin
Discussed risks and ramifications of untreated sleep apnea. Hyperglycemia noted
Patient agreeable to outpatient workup and treatment
We can facilitate. Information left in chart
Disposition efforts noted
We will sign off. Please call with questions
Subjective Dataa
Subjective Data
Date of Service:
Date of Service: May 24, 2024
Subjective:
Patient is feeling well. She is sitting in chair, without complaints. Denies chest pain, lightheadedness, dizziness, wheeze, shortness of breath. She has mild dry cough. Denies hemoptysis. Appears to be in good spirits, has been weaned down to
room air. Issues yesterday postprocedure noted. Wheezing, hypoxia, responded to nebulized treatment. Patient did not tolerate CPAP for few hours
Objective Data
Data Reviewed
Vital Signs / I&O / Oxygen:
Vital Signs
Temp Pulse Resp BP Pulse Ox
98.3 F 72 17 104/63 98
05/24/24 07:08 05/24/24 06:15 05/24/24 06:15 05/24/24 06:00 05/24/24 06:15
Intake and Output
05/23/24 05/24/24 05/25/24
06:59 06:59 06:59
Intake Total 2720.6 / 2853.6 1063 / 1063
Output Total 100 / 100 2100 / 2100
Balance 2620.6 / 2753.6 -1037 / -1037
SaO2 98
Nasal Cannula flow liters per 4
minute
Physical Exam
General: Comfortable
HEENT: Normocephalic and Anicteric
Cardiovascular: S1-S2, Irregular Rhythm and Murmur
Respiratory: Wheeze (n), Crackles (n), Rhonchi (n) and Non-Labored Respirations
GI: Soft, Non Distended and Non Tender
Neurology: Awake, Alert and No Motor Deficits
Skin: Cyanosis (n), Jaundice (n) and Rash (n)
Labs/Micro/Reports
Lab Data
05/24/24 03:24
05/24/24 03:24
Microbiology
05/22/24 21:18 Blood/Venous Blood Culture - Preliminary
No Growth in 24 hours- Final report to follow
05/22/24 21:19 Blood/Venous Blood Culture - Preliminary
No Growth in 24 hours- Final report to follow
[2024-05-24] MEDS: ELIQUIS 5 MG PO (08:20)
[2024-05-24] MEDS: CARDIZEM CD 180 MG PO (08:27)
--- NOTE | 2024-05-24 08:42 | W.PN.ANS.POP ---
Anesthesia Post Operative
- Anesthesia Post Op Note
Vital Signs Stable-See Nursing Note: Yes
Airway Patent: Yes
Adequate Pain Control: Yes
Change in Mental Status: No
Current Postoperative Nausea & Vomiting: No
Anesthesia Complications: No
General Anesthetic Recall: No
Unplanned Admission: No
Post Op Hydration Adequate: Yes
- -
Pt awake and alert- OOB to chair with no anesthesia r/t c/o at time of post op visit.
--- NOTE | 2024-05-24 09:02 | W.PN.CD ---
Today's Communication / Plan
-
Home on Eliquis 5 bid and Dilt ER 180 a day
F/u in our office in 2 weeks => our office will reach out to patient and she has our buisiness card
Appreciate Dr. Fallon's expert assistance
Impression / Plan
-
58 yo female with no significant PMH who presented with atrial tachycardia/SVT and then had hemodynamic compromise with metoprolol and diltiazem.
PAT, PAF, and PACs => ablation on 05/23/2024
- Tele with PACs and couplets, and some runs that are much slower and not sustaining
- Much less now s/p ablation
- Full efficacy of ablation I hope will increase with healing/maturation of ablation lesions but the need for chronic therapy including second ablation is possible
- AFib risk factor modification will be pursued by patient: much more exercise, significant reduction of BMI are her two main risk factors, later assess for sleep apnea
- Anticipate monitor in 3 months to assess burden of ectopy
- Home on Dilt ER 180 a day that she is now tolerating
Ablation
- No complication
- 3 or so months or Eliquis=> I reviewed risks of Eliquis, signs/sx of bleeding, seek ER for [place]/head trauma
- No PPI as pulse field ablation performed (extremely low risk of esophageal
Medication induced sinus node dysfunction and hypotension
- No significant bradys at this time even on oral DILT 180
Subjective:
Doing well. Eager for home
Physical Exam
Vital Signs/Labs
Vital Signs
Temp Pulse Resp BP Pulse Ox
98.3 F 79 17 120/71 98
05/24/24 07:08 05/24/24 08:27 05/24/24 06:15 05/24/24 08:27 05/24/24 06:15
05/23/24 05/24/24 05/25/24
06:59 06:59 06:59
Actual Weight 109.6 kg 109.8 kg
05/24/24 03:24
05/24/24 03:24
PT 13.1 Sec (11.4-14.6) 05/22/24 11:48
INR 1.01 05/22/24 11:48
APTT 27.2 Sec (23.4-35.0) 05/22/24 11:48
Magnesium 2.2 mg/dl (1.6-2.3) 05/24/24 03:24
LAB Results
05/22/24 05/22/24
11:48 18:00
Troponin I 0.014 Cancelled
Physical Exam
Constitutional: No acute distress
EENT: Anicteric
Cardiovascular: Rhythm & rate is regular, Pedal edema is absent and Murmur/rub/gallop absent
Respiratory: Respiratory effort normal and Lungs clear to auscul.
GI: Soft, Distention absent and Non tender
Neuro/Psych: AO x 3
Other: Cath Site (both groins C/D/I w/o hematoma)
Data Reviewed
-
Date of Service: May 24, 2024
--- NOTE | 2024-05-24 09:14 | W.PN.HOSP.TC ---
Today's Communication/Plan
-
Discharge planning today.
Assessment / Plan
Assessment / Plan
Physical exam:
General: Well Developed, Well Nourished and No Apparent Distress
HEENT: Normocephalic, Atraumatic and Moist Mucous Membranes
Respiratory: Clear to Auscultation; Negative Wheezes, Rales or Rhonchi
Cardiac: Regular Rhythm and S1/S2
GI: Soft, Nontender and Nondistended
Musculoskeletal: No Clubbing, No Cyanosis and No Edema
Neuro: Awake, Alert and Oriented
Psych: Calm
A/P:
Paroxysmal SVT/atrial fibrillation/atrial arrhythmias with tachybradycardia syndrome:
Status post rate control medications and followed by amiodarone drip
Status post temporary pacer
EPS consult
Status post ablation yesterday
Cardiology cleared her for discharge today and recommend Cardizem and Eliquis upon discharge.
Shock likely induced by arrhythmia:
Off pressors
IVF
No signs of infection
Transthoracic echo no significant abnormalities
Leukocytosis:
Reactive
Anemia:
Likely dilutional
Continue to monitor
DVT prophylaxis:
SCDs
CODE STATUS:
Full code
Anticipated Discharge: Today
Subjective/Interval History
-
Date of Service: May 24, 2024
Patient denies chest pain or shortness of breath. Remains in normal sinus rhythm.
Objective Data
-
Labs:
Laboratory Results
05/24/24
03:24
WBC 15.0 H
Hgb 11.4 L
Hct 34.8 L
Plt Count 191
Sodium 138
Potassium 4.3
Chloride 110 H
Carbon Dioxide 23
BUN 12
Creatinine 0.6
Glucose 143 H
Calcium 7.7 L
Vital Signs:
Vital Signs
Temp Pulse Resp BP Pulse Ox
98.3 F 79 17 120/71 98
05/24/24 07:08 05/24/24 08:27 05/24/24 06:15 05/24/24 08:27 05/24/24 06:15
I&O
05/23/24 05/24/24 05/25/24
06:59 06:59 06:59
Intake Total 2720.6 / 2853.6 1063 / 1063
Output Total 100 / 100 2099 / 2100
Balance 2620.6 / 2753.6 -1037 / -1037
--- NOTE | 2024-05-24 09:36 | PTCARENOTE ---
Pt received from night coordinator RN. Ox3 and appropriate. On tele she appears to be in a sinus rhythm with frequent runs of atrial ectopy. Pt asymptomatic. BL femoral access sites intact. 94% on RA, breath sounds clear. Round, obese ABD, + BS. BRP x1,
pt ambulating without difficulty. Pt sitting up in chair with call ball within reach. Pt able to make needs known.
--- NOTE | 2024-05-24 12:22 | W.DCSUMMARY ---
Discharge Summary
Discharge Data
Date of Admission: 05/22/24
Date of Discharge: 05/24/24
-
Pending Results: No
Hospital Course
Patient 58 years old female with no significant past medical history came into the hospital with intermittent palpitations associated with shortness of breath. Patient was found to have multiple atrial arrhythmias including atrial fibrillation,
atrial tachycardia, multiple premature atrial contractions. Cardiology consulted. She was given rate control medications and she developed symptomatic bradycardia requiring temporary pacemaker insertion. She also was hypotensive and required
pressors. It was felt that this was related to arrhythmia. There was no evidence of infection. Echocardiogram with no significant valvular heart disease and small underfilled left ventricle with normal left ventricular function and no evidence of
right ventricular dysfunction. Patient was kept in ICU. She was placed on amiodarone drip. Pressors were taken off and pacemaker later on was discontinued. EPS was consulted. She was given multiple options and ultimately decided on ablation
therapy. She underwent cardiac ablation and was placed on anticoagulation and rate control agents. Patient remained in normal sinus rhythm after procedure. She is also hemodynamically stable and asymptomatic. Cardiology cleared her for discharge
today.
Discharge duration: 35 minutes
Discharge Plan
-
Patient Disposition: Home (Routine Discharge)
Discharge Diagnosis/Procedures: Atrial fibrillation status post ablation.
Diet: Low Cholesterol
Driving Restrictions: No driving for 24 hours
Blood Work: Please PCP to order CBC, BMP within 1 week
Stand Alone Forms: DC Instructions- Cath/EP Lab
Referrals:
Lima Madrigal MD [Active] -
(Can see COMPLAINT ANALYST or Kaitlin for sleep apnea eval in 2-4 weeks
Needs HST
Obtain PFT at visit)
Nina Remy MD [Family Provider] - in less than 1 week
Unique Fox CRNP [Specified Professional Personl] - 07/01/24 9:20 am (Cardiology followup appointment)
Additional Discharge Medication Instructions: Stop by cardio office if Eliquis card not given in the hospital.
Prescriptions:
New
diltiazem HCl 180 mg Capsule,Extended Release 24hr
180 mg PO DAILY 30 Days Qty: 30 0RF
Eliquis 5 mg Tablet
5 mg PO BID 30 Days Qty: 60 0RF
Discharge Orders:
Discharge Patient (As Directed); Ordered 05/24/24
Ordered By: Anton Tamayo
Discharge Date and Time
Discharge Date/Time: 05/24/24 14:03
Print Language: MONTSERRAT[place]
[2024-05-24 13:47] LABS: Lyme Antibody Screen, EIA Negative (Negative)
--- NOTE | 2024-05-24 13:59 | CM ---
CM following re: discharge planning.
Reviewed pt's chart, met with pt.
Discharge order is noted. Pt is aware, expressed her agreement with discharge and she stated her mother is coming to transport home.
CM provided pt with 30days free coupon for Eliquis and $10.00 monthly coupon
Pt stated she is independent with functional ability and she will not need any after care VN services.
D/C plan: home with family, no needs. Mother to transport.
--- NOTE | 2024-05-24 13:59 | PTCARENOTE ---
Went through DC instructions with patient. All questions answered. Eliquis coupons given.
== END 2024-05-24 14:03 | disposition home or self-care (01) | DRG 274 ==
LOC: ICU 15:52
PROVIDERS: Internal Medicine Cardiovascular Disease; Internal Medicine Interventional Cardiology; Nurse Practitioner Family; ADMITTING PHYSICIAN Internal Medicine; ATTENDING PHYSICIAN Hospitalist; CONSULT PHYSICIAN Internal Medicine; CONSULT PHYSICIAN Internal Medicine Cardiovascular Disease; EMERGENCY PHYSICIAN Emergency Medicine; FAMILY PHYSICIAN Family Medicine; OTHER PHYSICIAN Internal Medicine Critical Care Medicine
PROC: 5A1223Z Performance of Cardiac Pacing, Continuous (ICD-10-PCS; 2024-05-22)
PROC: 4A023FZ Measurement of Cardiac Rhythm, Percutaneous Approach (ICD-10-PCS; 2024-05-23)
PROC: 4A0234Z Measurement of Cardiac Electrical Activity, Percutaneous Approach (ICD-10-PCS; 2024-05-23)
PROC: 02K83ZZ Map Conduction Mechanism, Percutaneous Approach (ICD-10-PCS; 2024-05-23)
PROC: 02583ZZ Destruction of Conduction Mechanism, Percutaneous Approach (ICD-10-PCS; 2024-05-23)
DX: I48.0 Paroxysmal atrial fibrillation (principal); I47.10 Supraventricular tachycardia, unspecified; Z79.01 Long term (current) use of anticoagulants; D64.9 Anemia, unspecified
CPT/HCPCS: 33210; 71045; 76937; 80048; 80053; 83735; 84100; 84443; 84484; 85025; 85027; 85347; 85379; 85610; 85652; 85730; 86140; 86618; 87040; 93005; 93306; 93623; 93656; 94640; 94660; 96374; 96375; 99291; 99292; C1730; C1732; C1733; C1759; C1766; C1769; C1892; C1894; J0153

== ENCOUNTER → 2024-07-15 09:00 | Outpatient (REF) | payer BC, SELFPAY | LOC: DHSLP 09:00 | PROVIDERS: ATTENDING PHYSICIAN Family Medicine | DX: G47.33 Obstructive sleep apnea (adult) (pediatric) (principal) | CPT/HCPCS: 95800 ==

== ENCOUNTER → 2025-08-31 11:11 | Outpatient (REF) | payer BC, SELFPAY | LOC: HWWDC 11:11 | PROVIDERS: ATTENDING PHYSICIAN Obstetrics & Gynecology Gynecology; FAMILY PHYSICIAN Family Medicine | DX: Z12.31 Encounter for screening mammogram for malignant neoplasm of breast (principal) | CPT/HCPCS: 77063; 77067 ==